=== PATIENT | male | born 1995 | race Caucasian/White ===

== ENCOUNTER 2017-02-13 19:45 | Emergency (ER) | payer BC ==
[~2017-02-13] VITALS: Ht 185.4 cm; Wt 91.3 kg
[2017-02-13 19:49] VITALS: BP 151/88; TEMP 36.8; Ht 185.4 cm; Wt 91.3 kg
[2017-02-13] MEDS ORDERED: ACET-1256 PO (20:14)
[2017-02-13] MEDS ORDERED: IBUP-1050 PO (20:15)
--- NOTE | 2017-02-13 20:30 | EMERGENCY ROOM VISIT NOTE ---
History First contact with patient: 19:52 Chief Complaint: SORETHROAT Stated Complaint: SEVERE SORE THROAT,ACHES AND PAINS,FEVER History of Present Illness The patient is a 21 year old male who presents to the Emergency Room via private vehicle with complaints of "severe sore throat, aches and pains, fever" . The patient states that yesterday he began with sore throat, as well as chills. He also felt generalized aches. He denies any neck pain, cough, headache, abdominal pain, history of strep. He notes that his throat is sore with swallowing foods and liquids. 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 Review of Systems A complete 6-point Review of Systems was discussed with the patient, with pertinent positives and negatives listed in the History of Present Illness. All remaining Review of Systems questions can be considered negative unless otherwise specified. Past Medical/Surgical History No pertinent. Family History No pertinent. Social History Smoking Status: Never Smoker Pt. is a [employer] student and lives locally Current/Historical Medications Scheduled Ibuprofen (Advil), 400 MG PO PRN UD Scheduled PRN Acetaminophen (Tylenol), 1,000 MG PO Q6 PRN for Pain or Fever Physical Exam Vital Signs Date Time Temp Pulse Resp B/P (MAP) Pulse Ox O2 Delivery O2 Flow Rate FiO2 02/13/17 21:00 98 18 99 Room Air 02/13/17 19:51 99 Room Air 02/13/17 19:49 36.8 105 18 151/88 99 Room Air Physical Exam VITAL SIGNS - Vital signs and nursing notes were reviewed. Stable. GENERAL - 21-year-old male appearing his stated age who is in no acute distress. Communicates well with provider and answers questions appropriately. SKIN - Without rashes.No petechial rashes. HEAD - NC/AT. EYES - PERRL with EOMI bilaterally. Sclera anicteric. Palpebral conjunctiva pink and moist with no injection noted. EARS - No deformities of external structures noted on gross examination bilaterally. No pain elicited with palpation of the tragus bilaterally. External auditory canals without discharge or otorrhea. Tympanic membranes pearly cruz without retraction or bulging. No fluid or purulent material visualized behind the TM. Handle of malleus, umbo, cone of light, pars tensa/ flaccid all easily visualized. NOSE - Midline and without cyanosis. No epistaxis or purulent drainage noted. Septum midline without deviation or septal hematoma noted. MOUTH/OROPHARYNX - Without perioral cyanosis. NECK - Neck with FROM. Supple to palpation. Min bilat ant. cervical lymphadenopathy. LUNGS - Chest wall symmetric without accessory muscle use, intercostals retractions, or central cyanosis. Normal vesicular breath sounds CTA B/L. No wheezes, rales, or rhonchi appreciated. CARDIAC - RRR with S1/S2. No murmur, rubs, or gallops appreciated. Medical Decision & Procedures Medical Decision Patient was seen and evaluated as above. He complains of sore throat today. He is nontoxic on exam. Rapid strep was obtained and found to be negative. I suspect viral pharyngitis. No evidence of meningitis or encephalitis on exam. He is not septic. Vital signs stable. He is afebrile. Throat culture pending. He is to return with worsening symptoms. He was educated upon management, educated upon worrisome symptoms which to return, had questions prior to discharge, and was discharged home in good condition. In the evaluation and treatment of this patient, the following differential diagnoses were considered: Pharyngitis, strep throat, mono, among others. Impression Primary Impression: Sore throat Departure Information Dispostion Home / Self-Care Condition GOOD Patient Instructions My [facility] Additional Instructions You were seen in the emergency department for your sore throat. The results of your rapid strep screen were found to be NEGATIVE. You will be contacted in 48- 72 hrs if the results of your culture are found to be positive and any change in antibiotics is necessary. For pain and fever control, you can use the following [id number] medicines (if >12 yo): - Regular strength (325mg/tab) Tylenol (acetaminophen) 2 tabs every 4-6 hours as needed. Do not exceed 12 tablets in a 24 hour period. Avoid taking more than 3 grams (3000 mg) of Tylenol per day. This includes any other sources of acetaminophen you may take on a regular basis. - Regular strength (200 mg/tab) Advil (ibuprofen) 1-2 tabs every 4-6 hours as needed. Do not exceed a dose of 3200 mg per day. - For best results, alternate dosing of Tylenol and Advil. In addition to your prescribed medications, you can also use the following home remedies: - Warm salt-water gargles 3 times per day can soothe your throat and help to fight infection. - Warm tea with honey can soothe your throat. Return to the emergency department if your symptoms persist or worsen over the next 2-3 days despite treatment course outlined above. Return to the emergency department if you develop the following symptoms of: inability to swallow solids , liquids, or drool; excessive wheezing or inability to catch your breath; or intractable fever or pain. Follow up with your primary care provider in 2-3 days from today's emergency department visit.
[2017-02-13 21:00] VITALS: PULSE 98; O2SAT 99
== END 2017-02-13 21:01 | disposition home or self-care (01) ==
LOC: C.EDB 19:46 → C.EDD 21:01
DX: J02.9 Acute pharyngitis, unspecified (principal)